=== PATIENT | male | born 1965 | race Two or more races ===

== ENCOUNTER 2024-02-02 09:52 | Emergency (ER) | payer OTHER ==
[~2024-02-02] VITALS: Ht 180.3 cm; Wt 81.2 kg
[~2024-02-02 09:52] MED LIST: ALTACE5 MG
[2024-02-02 10:56] LABS: HEMATOCRIT 44.6 % (39.0-48.0); HEMOGLOBIN 15.2 g/dL (13-16.00); MEAN CELL VOLUME 91.8 fL (80.0-100.00); MEAN CORPUSCULAR HEMOGLOBIN 31.2 pg (27.00-32.0); PLATELET COUNT 261 K/uL (150-450); RED BLOOD COUNT 4.86 M/uL (4.00-6.00); RED CELL DISTRIBUTION WIDTH 13.3 % (11.5-14.5)
[2024-02-02 11:25] LABS: BILIRUBIN TOTAL 1.92 mg/dL (0.3-1.2); CALCIUM 8.7 mg/dL (8.5-10.1); CREATININE SERUM 0.68 mg/dL (0.70-1.30); GFR 118.95; GLOBULINA 3.6 G/DL (2.4-3.5); POTASSIUM 3.62 mEq/L (3.5-5.1); TOTAL PROTEIN 7.6 gm/dL (6.4-8.2)
[2024-02-02 11:40] LABS: INR 1.05; PARTIAL THROMBOPLASTIN TIME 30.5 SECONDS (22.0-34.0)
== END 2024-02-02 16:14 | disposition home or self-care (01) ==
LOC: ER
PROVIDERS: General Practice
DX: R07.89 Other chest pain (principal); Z88.0 Allergy status to penicillin; I10 Essential (primary) hypertension